=== PATIENT | female | born 2000 | race Caucasian/White ===

== ENCOUNTER 2020-01-21 21:50 | Emergency (ER) | payer OTHER ==
[~2020-01-21] VITALS: Ht 162.6 cm; Wt 102.1 kg
[2020-01-21] MEDS ORDERED: PYRIDIUM200 MG PO (22:07)
[2020-01-21] MEDS ORDERED: BACTRIM DS TAB1 EACH PO (23:12)
== END 2020-01-21 23:52 | disposition home or self-care (01) ==
LOC: ED 21:50
DX: N30.10 Interstitial cystitis (chronic) without hematuria (principal)
CPT/HCPCS: 80053; 81001; 84703; 85025; 99284; J7030

== ENCOUNTER 2022-06-14 02:39 | Inpatient (IN) | payer OTHER ==
[~2022-06-14] VITALS: Ht 162.6 cm; Wt 122.5 kg
--- NOTE | ~2022-06-14 | OR ---
[facility] [address], [place] [address] Draft DATE OF OPERATION: 06/14/2022 SURGEON: Reinaldo Ayers DO PROCEDURE: Spontaneous vaginal delivery, repair of complex obstetric laceration in the OR. PREOPERATIVE DIAGNOSES: 1. Term , delivered. 2. Complex obstetric laceration. 3. hemorrhage. POSTOPERATIVE DIAGNOSES: 1. Term , delivered. 2. Complex obstetric laceration. 3. Third-degree perineal laceration. 4. hemorrhage. ELEMENTARY SUBSTITUTE TEACHER: Szymanski. ANESTHESIA: Spinal. BLOOD LOSS: 1000 mL associated with vaginal delivery, 300 mL in the OR. FINDINGS: Term viable female weighing 8 pounds 8 ounces in left occiput anterior position with tight nuchal x1. Apgars 8 and 9 at 1 and 5 minutes respectively. Deep bilateral vaginal sulcus tears with significant bleeding, obstetric anal sphincter injury, deep third-degree perineal laceration. INDICATION: The patient is a 22-year-old G1, P0, who presented to Labor and Delivery complaining of leaking fluid since 2 a.m. she was found to be ruptured with a bulging residual bag and positive nitrazine test and was 8 cm dilated. She strongly desired natural childbirth. Amniotomy of residual bag was offered, which she elected to proceed with. This was performed without difficulty yielding moderate amount of clear fluid. She progressed quickly to complete and began pushing when she felt the urge. scalp electrode was PATIENT NAME: CONSTANCERICK MAE OPERATIVE REPORT DATE OF : 99 REPORT #: [id number] PHYSICIAN: REINALDO AYERS DO PCP: ERIKA CHEN PA-C REPORT IS CONFIDENTIAL AND NOT TO BE RELEASED WITHOUT AUTHORIZATION [facility] [address], [place] [address] Draft applied due to difficulty following heart rate as she was changing positions. She primarily pushed in dorsal lithotomy and provided strong maternal expulsive effort. Infant's head delivered in left occiput anterior position. Tight nuchal was noted and delivered through, could not be reduced the perineum, then it was reduced. Baby was placed on mother's abdomen where she gave a spontaneous cry and was noted to have excellent tone. She was attended to by the nursery RN. The cord was doubly clamped and cut. Following cessation of cord pulsations, cord blood was collected for type and Christian. Placenta delivered spontaneously, was noted to be intact with a centrally inserted cord. The vagina was inspected, noted to have briskly bleeding, right sulcus tear with obstetric anal sphincter injury at least 3rd degree of now, 4th degree laceration as well. [id number] suture with 3-0 chromic was placed around the 2 obviously briskly bleeding vessels with improved hemostasis. Lap sponge was placed in the vagina for packing and patient was consented for repair of complex obstetric laceration in the OR. She was given 1 g TXA and was taken to the operating room. PROCEDURE IN DETAIL: In the OR, spinal anesthesia was placed by GLUE MAKER BONE and the patient was positioned in dorsal lithotomy and prepped and draped in normal sterile fashion. Bazan catheter was already in place from the delivery room and the vaginal packing was removed. Upon inspection in the OR, deep left vaginal sulcus laceration was noted. Decision was made to repair bilateral sulcal tears 1st before proceeding with anal sphincter repair due to concerns for hemostasis and hemorrhage with blood loss in the delivery room at 1000 mL before moving to OR. An additional bag of Pitocin was hung in the operating room with 20 units in 1 L sterile saline. Left vaginal sulcal tear was repaired with 2-0 Vicryl in a running locked fashion with hemostasis resulting. Of note, this tear extended to the cervix but not through. The cervix was inspected and noted to be intact. The right vaginal sulcus tear was not nearly as deep and was repaired easily with 2-0 Vicryl in a running locked fashion. Rectal exam was performed confirming 3rd degree tear. External anal sphincter was grasped with Allis clamps on either side taking care to grasp the full capsule. This was reapproximated in an end-to-end fashion with 2-0 Vicryl with a total of 4 stitches. Vaginal defect was noted just left of midline approximately 3 cm deep to introitus where the vaginal mucosa was reapproximated over the internal anal sphincter with 3-0 chromic in a running locked fashion. The anal mucosa was then reapproximated with 4-0 Monocryl suture in the apex and perform a subcuticular closure to the perineal body. At this point, a stitch with 2-0 Vicryl was used to perform a crown stitch followed by reinforcement of the perineal body with 2-0 Vicryl in a simple interrupted fashion. The perineal body skin closure was performed with a subcuticular closure with 3-0 Vicryl. Once closure was complete, vagina was reinspected and noted to be hemostatic. Uterus was Crede'd and with the fundus noted to be firm. The patient was taken to recover in her LDRP room in stable and satisfactory condition. Coagulation panel was obtained with normal findings. Hemoglobin was noted to have dropped to 10.8 from 12.9 on admission, both with fluid resuscitation and blood loss and followup CBC in PATIENT NAME: CONSTANCERICK Clarke OPERATIVE REPORT DATE OF : 99 REPORT #: [id number] PHYSICIAN: REINALDO AYERS DO PCP: ERIKA CHEN PA-C REPORT IS CONFIDENTIAL AND NOT TO BE RELEASED WITHOUT AUTHORIZATION [address] [place], [place] [address] Draft 6 hours was ordered. All sponge and instrument counts were correct. DO RORY Santos/MODL /[id number] Copies: ~ PATIENT NAME: RICK NOLASCO OPERATIVE REPORT DATE OF : 99 REPORT #: [id number] PHYSICIAN: REINALDO AYERS DO PCP: ERIKA CHEN PA-C REPORT IS CONFIDENTIAL AND NOT TO BE RELEASED WITHOUT AUTHORIZATION
[~2022-06-14 02:39] MED LIST: BACTRIM DS TAB1 EACH PO; PYRIDIUM200 MG PO
--- NOTE | 2022-06-14 03:50 | NUR ---
COVID 19 SWAB DONE TO BOTH NARES AND SENT TO IN HOUSE LAB.
[2022-06-14 04:17] VITALS: BP 124/73
[2022-06-14 09:25] VITALS: BP 118/57
--- NOTE | 2022-06-14 09:30 | NUR ---
06/14/22 0930 Rebecca Mead 0883 PT ARRIVED TO ROOM 102 WIDE AWAKE. MULTIPLE FAMILY MEMBERS IN ROOM. ASKED FOR ONLY 2 PEOPLE TO STAY WHILE DOING RECOVERY. REPORT RECEIVED FROM AUTOMATIC GRINDING MACHINE OPERATOR. 0900 MOM BABY WITH HELP FROM [facility] RN. FATHER OF BABY AND PT'S SISTER AT BEDSIDE. 0910 REPORT GIVEN TO [facility] RN. DR SYED AT BEDSIDE UPDATING PT/FAMILY ON LABS. BED PLUGGED IN.
--- NOTE | 2022-06-15 12:55 | PR ---
[facility] [address] [place], [place] [address] Signed PP Progress Notes Datetime Report Generated by CPAnusha: 06/15/2022 12:55 SUBJECTIVE: [id number] Nausea/Vomiting: Denies Flatus: Yes Bowel Movement: Yes Vital Signs: [id number] Vital Signs: Reviewed Cardiovascular: Normal Respiratory: Normal Abdomen/Uterus: Normal Lochia: Normal Extremities: Normal Progress: Normal Exam Comments: NAD, lying in bed RRR No dyspnea/ retractions Abd SNTND, FFBU Ext: 1+ BLLE edema, neg Mannie's BL Bazan out, awaiting spontaneous void IMPRESSION/PLAN/PROCEDURES: [id number] Impression: Normal Progression Plan: Continue Present Management Progress Notes: Pt is 22 yo PPD#1 POD#1 from repair of 3rd degree perineal laceration and complex sulcus laceration -Progressing well postop/ hemorrhage: source = obstetric laceration. EBL 1300mL, s/p 1g TXA and additional 20 units pitocin, acute blood loss anemia -hgb 8.1 this am from 12.9 on admission -s/p IV iron infusion yesterday, reports asymptomatic since that time Anticipate DC to home tomorrow, continue sitz baths, await spontaneous void, continue / postop care Signing Physician: Reinaldo Ayers DO *Electronically Signed* 06/15/22 1255 REINALDO AYERS DO PATIENT NAME: RICK NOLASCO PROGRESS NOTE DATE OF : 99 PHYSICIAN: REINALDO AYERS #: [id number] REPORT IS CONFIDENTIAL AND NOT TO BE RELEASED WITHOUT AUTHORIZATION
--- NOTE | 2022-06-16 10:28 | PR ---
[facility] [address] [facility] [place], [place] [address] Signed PP Progress Notes Datetime Report Generated by COSME: 06/16/2022 10:28 SUBJECTIVE: [id number] Nausea/Vomiting: Denies Flatus: Yes Bowel Movement: No Vital Signs: [id number] Vital Signs: Reviewed; Within Normal Limits EXAM: Ongoing Cardiovascular: Normal Respiratory: Normal Abdomen/Uterus: Normal Lochia: Normal Breasts: Normal Extremities: Normal Progress: Normal Exam Comments: NAD sitting up in bed RRR No dyspnea/ retractions Abd SNTND, FFBU Ext: 1+ BLLE edema IMPRESSION/PLAN/PROCEDURES: [id number] Impression: Normal Progression Plan: Continue Present Management; Discharge Procedures: None Progress Notes: PPD#2 s/p , POD#2 s/p repair of obstetric laceration in OR -healing well , ambulating/ voiding/ tolerating regular diet -pain well-controlled with orals, taking norco rarely - well, outpatient consult scheduled for Monday 06/19 -requesting DC to home today Follow-up in office within 2 weeks Signing Physician: Reinaldo Ayers DO *Electronically Signed* 06/16/22 1028 REINALDO AYERS DO PATIENT NAME: RICK NOLASCO PROGRESS NOTE DATE OF : 99 PHYSICIAN: REINALDO AYERS #: [id number] REPORT IS CONFIDENTIAL AND NOT TO BE RELEASED WITHOUT AUTHORIZATION
== END 2022-06-16 15:05 | disposition home or self-care (01) | DRG 768 ==
LOC: FBCO 02:39 → FBC 03:30
PROVIDERS: ADMIT Obstetrics & Gynecology; ATTEND Obstetrics & Gynecology
PROC: 0DQR0ZZ Repair Anal Sphincter, Open Approach (ICD-10-PCS; 2022-06-14)
PROC: 10907ZC Drainage of Amniotic Fluid, Therapeutic from Products of Conception, Via Natural or Artificial Opening (ICD-10-PCS; 2022-06-14)
PROC: 0HQ9XZZ Repair Perineum Skin, External Approach (ICD-10-PCS; 2022-06-14)
PROC: 10E0XZZ Delivery of Products of Conception, External Approach (ICD-10-PCS; principal; 2022-06-14 06:57)
DX: O42.02 Full-term premature rupture of membranes, onset of labor within 24 hours of rupture (principal); Z37.0 Single live birth; D62 Acute posthemorrhagic anemia; O72.1 Other immediate postpartum hemorrhage; O70.20 Third degree perineal laceration during delivery, unspecified; O99.214 Obesity complicating childbirth; O90.81 Anemia of the puerperium; Z3A.39 39 weeks gestation of pregnancy; Z67.40 Type O blood, Rh positive; O69.81X0 Labor and delivery complicated by cord around neck, without compression, not applicable or unspecified; Z20.822 Contact with and (suspected) exposure to COVID-19; Z90.89 Acquired absence of other organs; Z98.890 Other specified postprocedural states
CPT/HCPCS: 36415; 85025; 85027; 85384; 85610; 86850; 86900; 86901; 87502; A9270; C9803; J0690; J2370; J2590; J7121; Q0138; U0003

== ENCOUNTER 2024-07-07 10:52 | Emergency (ER) | payer OTHER ==
[~2024-07-07] VITALS: Ht 162.6 cm; Wt 132.4 kg
[2024-07-07 11:11] LABS: BASOPHILS 0.4 % (0-2); EOSINOPHILS 0.9 % (0-6); HEMATOCRIT 41.4 % (35.0-50.0); HEMOGLOBIN 14.4 g/dL (12.0-18.0); LYMPHOCYTES 21.5 % (24-44); MCH 31.2 (27-36); MCHC 34.8 g/dl (30-36); MCV 89.6 fl (81-99); MONOCYTES 6.3 % (0-12); NEUTROPHILS 70.9 % (39-80); PLATELET COUNT 278 K/uL (140-440); RBC 4.62 M/ul (4.3-5.7); RDW 12.4 (10.5-15.0)
[2024-07-07] MEDS ORDERED: ondansetron HCL 4 MG/2 ML VIAL IV ONE (11:15)
[2024-07-07 11:18] LABS: BILIRUBIN, URINE NEGATIVE (negative); BLOOD/HGB, URINE TRACE-I (Negative); KETONE, URINE NEGATIVE (Negative); LEUK ESTERASE, URINE NEGATIVE (negative); NITRITE, URINE NEGATIVE (negative)
[2024-07-07 11:28] LABS: ALBUMIN 3.7 g/dL (3.4-5.0); ALBUMIN/GLOBULIN RATIO 1.03 (1.1-2.4); ANION GAP 10.6 (7-21); BILIRUBIN, TOTAL 0.5 mg/dL (0.2-1.0); BUN/CREATININE RATIO 16.9 (6.0-28.6); CALCIUM 8.5 mg/dL (8.5-10.1); CREATININE, SERUM 0.71 mg/dL (0.55-1.02); POTASSIUM 3.6 mmol/L (3.5-5.1); PROTEIN, TOTAL 7.3 g/dL (6.4-8.2)
[2024-07-07 11:31] LABS: BACTERIA, URINE NONE SEEN /hpf (negative); CASTS, URINE NONE SEEN \\lpf; COLLECTION TYPE, URINE CLEAN CATCH; CRYSTALS, URINE NONE SEEN (0-1+); EPITHELIAL CELLS, URINE SQUAMOUS 2+ /lpf (0-1+); REFLEX CULTURE, URINE No (No); WHITE BLOOD CELLS, URINE 0-1 /HPF (0-5)
[2024-07-07 12:43] VITALS: BP 137/94
== END 2024-07-07 12:44 | disposition home or self-care (01) ==
LOC: ED 10:52
PROVIDERS: Emergency Medicine
DX: R10.31 Right lower quadrant pain (principal)
CPT/HCPCS: 36415; 80053; 81001; 83690; 84703; 85025; 99284